=== PATIENT | male | born 1950 | race Caucasian/White ===

== ENCOUNTER 2019-08-16 08:33 | Emergency (ER) | payer MEDICARE, OTHER, SELFPAY ==
[2019-08-16 08:34] VITALS: BP 158/88; PULSE 93; RESP 18; TEMP 36.3; O2SAT 98; BMI 25.3
--- NOTE | 2019-08-16 08:42 | CT_ITS ---
STUDY: CT BRAIN WITHOUT CONTRAST REASON FOR EXAM: Male, 68 years old. LEFT ARM N/T, DIZZINESS X WKS. Symptoms resolving RADIATION DOSAGE (If Supplied By Facility): CTDIvol = ( 44.99 ) mGy, DLP = ( 779.24 ) mGycm TECHNIQUE: Transaxial CT imaging of the brain was performed without administration of intravenous contrast material. Individualized dose optimization techniques were used for this CT. COMPARISON: No relevant priors. FINDINGS: Normal soft tissue structures. Normal calvarium. There is mild cerebral atrophy with widening of the extra-axial spaces and ventricular dilatation. There are areas of decreased attenuation within the white matter tracts of the supratentorial brain, consistent with microvascular disease changes. Normal basal ganglia and thalami. Normal brainstem. Normal cerebellum. There is no intracranial hemorrhage. There are no findings of an acute ischemic infarction. Normal visualized paranasal sinuses. CT/Brain/Head without Contrast IMPRESSION: Chronic involutional changes of the brain. No acute hemorrhage Electronically Signed: Marcio Brady MD at 9:06 EDT , Service support ,
--- NOTE | 2019-08-16 08:42 | EKG12_ITS ---
Test Reason : CP Blood Pressure : / mmHG Vent. Rate : 077 BPM Atrial Rate : 090 BPM P-R Int : 214 ms QRS Dur : 144 ms QT Int : 406 ms P-R-T Axes : 073 -41 020 degrees QTc Int : 459 ms Sinus rhythm with marked sinus arrhythmia with 1st degree A-V block Left axis deviation Right bundle branch block Abnormal ECG Confirmed by CARMENCITA KEYS ([id number]), telegraph editor EDWARD COWAN ([id number]) on 08/24/2019 8:26:00 AM Referred By: WILBERTO Confirmed By:CARMENCITA KEYS
--- NOTE | 2019-08-16 08:42 | ED.RN ---
PER DR LADD, NO STROKE ALERT NEEDED
[2019-08-16 08:46] VITALS: BP 132/64; PULSE 79; RESP 18; O2SAT 98
--- NOTE | 2019-08-16 08:47 | ED.DCSUM_ITS ---
- ER Visit Summary Date of Service: 08/16/19 Chief Complaint: Paresthesias History of Present Illness: The patient is a 68 M who presents with paresthesias to his left arm that began today. Patient states he woke up and was feeling fine. Patient states he opened up his Chrome book to check the weather and he noted some decrease sensation in his left arm. Patient denies any weakness. Patient denies any paresthesias in his lower extremities. Patient denies any paresthesias in his right arm. Patient denies any difficulty with speech. Patient denies any difficulty swallowing. Patient denies any headaches, nausea, vomiting, or chest pain. Patient denies any visual changes. Physical Examination: Vital signs are stable except for slightly elevated blood pressure of 158/88. Patient is afebrile. Patient is in no acute distress. Pupils are equal, round, and reactive to light bilaterally. Extraocular muscles are intact. There are no visual field deficits. Cranial nerves II through XII are intact. Strength is 5/5 bilateral knee upper and lower extremities. There are no sensory deficits at this time. Neck is supple. Trachea is midline. There is no JVD. Heart was regular rate and rhythm. Lungs are clear and equal bilaterally. Abdomen is soft. Bowel sounds are normal. There is no tenderness. Test Results: EKG showed a normal sinus rhythm with a rate of 77. There is a first-degree AV block. There is a right bundle branch block noted. There are no acute ST or T wave changes. This was unchanged compared to previous EKG dated 03/08/2017. CBC was normal. Comprehensive metabolic profile showed a mild hypokalemia of 3.2. INR and PTT were within normal limits. Troponin was normal. CT scan of the brain was obtained. There is no acute intracranial abnormality. Portable chest x-ray was obtained. There is no acute cardiopul monary process. These were interpreted by the radiologist and reviewed by myself. Emergency Department Course and Treatment: Since his symptoms have resolved, a stroke team was not called. Patient was advised of his results. I recommended admission for TIA evaluation. He is agreeable with this. When the patient got up to walk to the bathroom he stated that his left leg felt funny but he was able to ambulate without difficulty. He stated that this is new. Patient describes this as it feels like there is ice under his left foot. Case was discussed with the hospitalist. He will admit the patient to his service for observation. Patient understands and is agreeable with the plan. All questions were answered. Patient initially was agreeable to admission. However patient changed his mind and does not want to be admitted or have an MRI. Patient will sign out AGAINST MEDICAL ADVICE. Patient was instructed to take baby aspirin. Patient was instructed to follow-up with his primary care physician in 1 to 2 days for further evaluation. Patient was advised that he could have further TIA symptoms and possible stroke or possible . Patient understands and will still sign out AGAINST MEDICAL ADVICE. Disposition: Discharge AGAINST MEDICAL ADVICE Impression: Transient ischemic attack This note was generated with [employer] dictation software. It may contain incorrect words, spelling, and punctuation that were not noted in review of the chart prior to signing ED Disposition - Plan for ED Patient: Disposition: Against Medical Advice Diagnosis: Transient ischemic attack Referrals: Pito Francisco MD [NON-STAFF] -
[2019-08-16 08:51] LABS: Absolute Lymphocyte Count 1.64 X10^3/uL (0.83-4.51); Absolute Neutrophil Count 2.7 X10^3/uL (2.0-7.7); Basophil# 0.03 X10^3/uL; Basophil% 0.6 % (0-1); Eosinophils% 2.1 % (0-5); Hematocrit 43.3 % (40-54); Hemoglobin 14.4 g/dL (13.0-16.5); Lymphocyte # 1.64 X10^3/ul (4.0); Lymphocyte % 33.7 % (19-41); Mean Corp Hgb Conc 33.3 g/dL (32-36); Mean Corpuscular Hgb 30.8 pg (27.0-32.0); Mean Corpuscular Volume 92.7 fL (80-94); Mean Platelet Vol. 10.7 fl (6.2-12.0); Monocyte# 0.44 X10^3/uL; NRBC Flagged by Analyzer 0 % (0-5); Neutrophil # 2.65 X10^3/uL (2.7-7.7); Neutrophil % 54.4 % (47-70); Platelet Count 192 K/mm3 (150-450); RBC Distribution Width CV 12.2 % (11.6-14.6); RBC Distribution Width SD 41.4 fl (35.1-43.9); Red Blood Count 4.67 M/mm3 (4.6-6.2); White Blood Count 4.9 K/mm3 (4.4-11.0)
--- NOTE | 2019-08-16 08:52 | RAD_ITS ---
STUDY: X-RAY CHEST REASON FOR EXAM: Male, 68 years old. Chest pain/pressure TECHNIQUE: Single AP portable view of the chest. COMPARISON: 03/08/17 FINDINGS: EKG leads overlie the chest The lungs are clear and expanded. There is no demonstrated pleural abnormality. Normal size heart. Normal mediastinum and [place]. Normal visualized pulmonary arteries. Normal visualized aortic arch and descending thoracic aorta. There are diffuse degenerative changes of the visualized thoracic spine. Normal visualized ribs, clavicles, and shoulders. There is no demonstrated abnormality of the visualized soft tissue structures of the upper abdomen. RAD/Chest 1 View IMPRESSION: No acute pulmonary process, no interval change Electronically Signed: Marcio Brady MD at 9:10 EDT , Service support ,
[2019-08-16 08:55] LABS: International Normalized Ratio 1.1
[2019-08-16 08:56] LABS: Partial Thromboplast Time 38.1 Seconds (24.1-36.2)
[2019-08-16 09:12] VITALS: BP 122/56; PULSE 77; RESP 18; O2SAT 99
[2019-08-16 09:37] LABS: Anion Gap 5 (5-15); BUN 15 mg/dL (7-18); BUN/Creat Ratio 12.5 RATIO (10-20); Calcium,Total 9.1 mg/dL (8.5-10.1); Chloride 107 mmol/L (98-107); EST Glomerular Filtration Rate 63 mL/min (>60); Est Glom Filt Rate - Afr Amer 77 mL/min (>60); Estimated Creatinine Clearance 57.28 ml/min; Glucose 98 mg/dL (74-106); Potassium 3.2 mmol/L (3.5-5.1); Sodium Level 141 mmol/L (136-145)
--- NOTE | 2019-08-16 10:24 | NURSING ---
DR POSADA FOR DR LADD
--- NOTE | 2019-08-16 10:35 | NURSING ---
PCU OBS TERELETSKY TIA
[2019-08-16 10:47] VITALS: BP 147/74; PULSE 83; RESP 20; TEMP 36.7; O2SAT 99
[2019-08-16 11:07] VITALS: BP 141/68; PULSE 76; RESP 18; O2SAT 99
--- NOTE | 2019-08-16 12:10 | ED.RN ---
PT TO BE ADMITTED, HOWEVER DECIDED TO GO HOME. PT ADVISED THAT FURTHER TESTING WAS MEDICALLY NECESSARY. PT ACKNOWLEDGES AND DEMONSTRATES UNDERSTANDING. PT SIGNED AMA FORMS REQUIRED. PT INSTRUCTED TO TAKE BABY ASPIRIN DAILY AND FOLLOW UP WITH FAMILY PHYSICIAN.
[2019-08-17 07:36] LABS: Bedside Glucose 92 mg/dL (70-110)
== END 2019-08-16 12:12 | disposition left against medical advice (07) ==
LOC: ED 10:47 → PCU 11:56
PROVIDERS: Emergency Provider Emergency Medicine; PCP Student in an Organized Health Care Education/Training Program
DX: G45.9 Transient cerebral ischemic attack, unspecified (principal); Z53.29 Procedure and treatment not carried out because of patient's decision for other reasons
CPT/HCPCS: 70450; 71045; 80048; 82962; 84484; 85025; 85610; 85730; 93005; 99285; A4216

== ENCOUNTER 2020-04-27 06:07 | Outpatient (RCR) | payer MEDICARE, OTHER, SELFPAY ==
[2020-04-27] MEDS: COVID-19 VACC, MRNA(PFIZER)/PF 30 MCG/0.3 ML SYRINGE IM (16:24)
[2020-05-18] MEDS: COVID-19 VACC, MRNA(PFIZER)/PF 30 MCG/0.3 ML SYRINGE IM (16:05)
== END 2020-08-01 23:59 ==
LOC: IMMUN 06:07
PROVIDERS: PCP Student in an Organized Health Care Education/Training Program; Referring Provider Family Medicine; Visit Provider Family Medicine
DX: Z23 Encounter for immunization (principal)
CPT/HCPCS: 0001A; 0002A; 91300